=== PATIENT | male | born 1960 | race Caucasian/White ===

== ENCOUNTER 2017-01-03 21:22 | Observation (INO) | payer OTHER ==
[~2017-01-03 21:22] MED LIST: ADVA500A INH; BUSP10TA PO; DULE200A INH; GABA300C5 PO; IPRAAER INH; LISI-515 PO; ROBA500T PO
[2017-01-03] MEDS ORDERED: EPINEPHrine HCL (1:1000) 1 MG/ML VIAL ONE (21:26)
[2017-01-03 21:29] VITALS: BP 89/52; PULSE 95; RESP 24; TEMP 98.8; O2SAT 91
[2017-01-03] MEDS ORDERED: EPINEPHrine HCL (1:1000) 1 MG/ML VIAL IM ONE (21:45)
--- NOTE | 2017-01-03 21:59 | PD ---
HPI Chief Complaint: Allergic/Adverse Reaction Time Seen by Provider: 21:33 Travel History International Travel<30 days: No Contact w/Intl Traveler<30days: No Traveled to known affect area: No History of Present Illness HPI 56yo M with PMH of COPD presents to the ED with c/o sob, upper lip swelling, hives, itching after eating shrimp about 1.5 hour prior to arrival. Pt was given 125mg IV methylprednisolone, nebulizer treatment and benadryl 50mg by [facility]. Pt states that he is feeling better and hip upper lip swelling has improved. Pt initially hypotensive with BP 80s/50s and BP improved to 120s/90s after IVF NS. Had some chest tightness but denies any chest pain right now. Denies any fever, n/v, abdominal pain, weakness or numbness. Pt states he had a reaction to shrimp many years ago. PFSH Past Medical History Anxiety: Yes Heart Rhythm Problems: No Cardiac Catheterization: No High Cholesterol: No Congestive Heart Failure: No COPD: Yes Diabetes: No Diminished Hearing: No Diverticulitis: Yes (2 TO 3 TIMES A YEAR) Hypertension: Yes Past Surgical History Abdominal Surgery: Yes (BOWEL RESECTION COLOSTOMY 2011) Coronary Artery Bypass Graft: No Tonsillectomy: Yes Other Surgery: Yes (CHEST TUBE RIGHT FOR PNEUMO) Social History Alcohol Use: No Tobacco Use: Yes (1 PPD) Substance Use: No Allergies-Medications (Allergen,Severity, Reaction): Coded Allergies: Shrimp (Verified Allergy, Severe, Anaphylaxis, 01/04/17) Reported Meds & Prescriptions Reported Meds & Active Scripts Active Epipen 2-Raghav Inj (Epinephrine) 0.3 Mg/0.3 Ml Pfpen 0.3 Mg IM ONCE PRN Medrol Dosepak (Methylprednisolone) 4 Mg Dspk 4 Mg PO DIRECTED Per Pharmacist direction Combivent Respimat Inh (Ipratropium-Albuterol Inh) 20-100 Halfway/Act Aero 1 Puff INH QID Advair Diskus Inh (Fluticasone-Salmeterol Inh) 500-50 Mcg/Blist Aer 1 Puff INH BID Rinse mouth after use. Robaxin (Methocarbamol) 500 Mg Tab 500 Mg PO TID Gabapentin 300 Mg Cap 300 Mg PO TID Lisinopril 20 Mg Tab 20 Mg PO DAILY Reported Dulera 120 Act Inh (Mometasone-Formoterol 120 Act Inh) 200-5 Mcg/Act Inh 2 Puff INH BID Buspirone (Buspirone HCl) 10 Mg Tab 10 Mg PO BID Review of Systems Except as stated in HPI: all other systems reviewed are Neg Physical Exam Narrative GENERAL: 56yo M in mild distress. SKIN: urticaria bilateral arms and legs. HEAD: Atraumatic. Normocephalic. EYES: Pupils equal and round. No scleral icterus. No injection or drainage. ENT: +Mild edema in upper lip and uvula. Patent airway. NECK: Trachea midline. No JVD. CARDIOVASCULAR: Regular rate and rhythm. No murmur appreciated. RESPIRATORY: No accessory muscle use. Clear to auscultation. Breath sounds equal bilaterally. GASTROINTESTINAL: Abdomen soft, non-tender, nondistended. +Colostomy bag. No rebound tenderness or guarding. MUSCULOSKELETAL: No obvious deformities. No clubbing. No cyanosis. No edema. NEUROLOGICAL: Awake and alert. No obvious cranial nerve deficits. Motor grossly within normal limits. Normal speech. PSYCHIATRIC: Appropriate mood and affect; insight and judgment normal. Data Data Last Documented VS Vital Signs Date Time Temp Pulse Resp B/P Pulse Ox O2 Delivery O2 Flow Rate FiO2 01/04/17 00:00 87 20 115/69 96 Nasal Cannula 3 01/03/17 21:29 98.8 Orders Epinephrine (1:1000) Inj (Adrenalin (1:1 (01/03/17 21:26) Epinephrine (1:1000) Inj (Adrenalin (1:1 (01/03/17 21:45) Complete Blood Count With Diff (01/03/17 21:59) Basic Metabolic Panel (Bmp) (01/03/17 21:59) Troponin I (01/03/17 21:59) Chest, Single Ap (01/03/17 ) Electrocardiogram (01/03/17 ) Sodium Chlor 0.9% 1000 Ml Inj (Ns 1000 M (01/03/17 22:00) Lactic Acid Sepsis Protocol (01/03/17 23:35) Calcium Gluconate Inj (Calcium Gluconate (01/04/17 00:15) Admit Order (Ed Use Only) (01/04/17 00:17) Labs Laboratory Tests Test 01/03/17 01/03/17 23:00 23:40 White Blood Count 24.0 TH/MM3 Red Blood Count 5.01 MIL/MM3 Hemoglobin 15.2 GM/DL Hematocrit 44.5 % Mean Corpuscular Volume 88.8 FL Mean Corpuscular Hemoglobin 30.4 PG Mean Corpuscular Hemoglobin 34.2 % Concent Red Cell Distribution Width 13.1 % Platelet Count 349 TH/MM3 Mean Platelet Volume 8.9 FL Neutrophils (%) (Auto) 88.2 % Lymphocytes (%) (Auto) 8.1 % Monocytes (%) (Auto) 3.3 % Eosinophils (%) (Auto) 0.2 % Basophils (%) (Auto) 0.2 % Neutrophils # (Auto) 21.2 TH/MM3 Lymphocytes # (Auto) 1.9 TH/MM3 Monocytes # (Auto) 0.8 TH/MM3 Eosinophils # (Auto) 0.1 TH/MM3 Basophils # (Auto) 0.1 TH/MM3 CBC Comment DIFF FINAL Differential Comment Sodium Level 139 MEQ/L Potassium Level 4.1 MEQ/L Chloride Level 105 MEQ/L Carbon Dioxide Level 25.4 MEQ/L Anion Gap 9 MEQ/L Blood Urea Nitrogen 15 MG/DL Creatinine 1.18 MG/DL Estimat Glomerular Filtration 63 ML/MIN Rate Random Glucose 166 MG/DL Calcium Level 7.7 MG/DL Troponin I 0.02 NG/ML Lactic Acid Level 1.3 mmol/L MDM Medical Decision Making Medical Screen Exam Complete: Yes Emergency Medical Condition: Yes Differential Diagnosis Anaphylaxis vs. COPD exacerbation Narrative Course 56yo M presents with anaphylaxis s/p eating shrimp at home. Pt was given methylprednisolone and diphenhydramine by [facility] with some improvement of symptoms. Epinephrine 0.3mg IM given in the ED. Pt observed with improvement of symptoms. Labs reviewed, leukocytosis of 24. CXR negative. Pt presented with anaphylaxis and has improved with medications. Hypotensive initially and responded to IVF NS. Pt to be admitted for observation. Diagnosis Primary Impression: Anaphylaxis Qualified Code: T78.2XXA - Anaphylaxis, initial encounter Admitting Information Admitting Physician Requests: Observation Scripts Epinephrine Inj (Epipen 2-Raghav Inj)0.3 Mg/0.3 Ml Pfpen0.3 Mg IM ONCE PRN ( ALLERGIC REACTION) #1 PACK Ref 0 Prov:Boris Prieto 01/04/17 Methylprednisolone Dosepak (Medrol Dosepak)4 Mg Dspk4 Mg PO DIRECTED #1 DSPK Ref 0 Per Pharmacist direction Prov:Boris Prieto 01/04/17 Jayda Bokyin DO Jan 03, 2017 21:59
[2017-01-03 22:00] VITALS: BP 105/63; PULSE 77; RESP 20; O2SAT 92
[2017-01-03] MEDS ORDERED: SODIUM CHLOR 0.9% 1000 ML INJ 1,000 ML IV ONE (22:00)
--- NOTE | 2017-01-03 22:36 | RADRPT ---
EXAM DATE/TIME: 01/03/2017 22:24 [facility] COMPARISON: CHEST SINGLE AP, October 27, 2014, 12:12. INDICATIONS : Sudden onset of difficulty breathing after eating shrimp tonight. MEDICAL HISTORY : Hypertension. Chronic obstructive pulmonary disease. Diverticulitis. SURGICAL HISTORY : Tonsillectomy. Bowel resection. Colostomy. ENCOUNTER: Initial ACUITY: 1 day PAIN SCORE: 0/10 LOCATION: Bilateral chest FINDINGS: A single view of the chest demonstrates the lungs to be symmetrically aerated without evidence of mas s, infiltrate or effusion. The cardiomediastinal contours are unremarkable. Osseous structures are intact. CONCLUSION: No acute disease. Rinku Benz MD on January 03, 2017 at 22:33 Board Certified Radiologist. This report was verified electronically.
[2017-01-03 23:00] VITALS: BP 106/70; PULSE 84; RESP 20; O2SAT 91
[2017-01-03 23:18] LABS: AUTOMATED NEUTROPHIL # 21.2 TH/MM3 (1.8-7.7); BASOPHIL # 0.1 TH/MM3 (0-0.2); BASOPHIL % 0.2 % (0.0-2.0); EOSINOPHIL # 0.1 TH/MM3 (0-0.4); EOSINOPHIL % 0.2 % (0.0-4.0); HEMATOCRIT 44.5 % (39.0-51.0); HEMO FLAGS DIFF FINAL; LYMPH % 8.1 % (9.0-44.0); LYMPHOCYTE # 1.9 TH/MM3 (1.0-4.8); MEAN CELL VOLUME 88.8 FL (80.0-100.0); MEAN CORPUSCULAR HEMOGLOBIN 30.4 PG (27.0-34.0); MEAN CORPUSCULAR HGB CONC 34.2 % (32.0-36.0); MONO % 3.3 % (0.0-8.0); NEUT % 88.2 % (16.0-70.0); PLATELET COUNT 349 TH/MM3 (150-450); RED BLOOD COUNT 5.01 MIL/MM3 (4.50-5.90); RED CELL DISTRIBUTION WIDTH 13.1 % (11.6-17.2)
[2017-01-03 23:48] LABS: BICARBONATE 25.4 MEQ/L (21.0-32.0); POTASSIUM 4.1 MEQ/L (3.5-5.1)
[2017-01-04] VITALS: BP 115/69; PULSE 87; RESP 20; O2SAT 96
[2017-01-04] MEDS ORDERED: CALCIUM GLUCONATE INJ 1 GM in DEXTROSE 5% IN WATER 100ML INJ 100 ML IV ONE ×2 (00:15)
[2017-01-04] MEDS ORDERED: ONDANSETRON HCL 4 MG/2 ML VIAL IVP PRN (00:30)
[2017-01-04] MEDS ORDERED: SODIUM CHLORIDE 0.9% FLUSH 5 ML FLUSH FLUSH PRN (00:30)
[2017-01-04] MEDS ORDERED: BISACODYL 10 MG SUPP PR PRN (00:30)
[2017-01-04] MEDS ORDERED: RESP: ALBUTEROL 2.5 MG/IPRATROPIUM 0.5 MG NEB (PRN) NEB (00:30)
[2017-01-04] MEDS ORDERED: ACETAMINOPHEN/HYDROcodone 325 MG/10 MG TAB PO PRN (00:30)
[2017-01-04] MEDS ORDERED: ACETAMINOPHEN 325 MG TAB PO PRN (00:30)
[2017-01-04] MEDS ORDERED: ACETAMINOPHEN/HYDROcodone 325 MG/5 MG TAB PO PRN (00:30)
[2017-01-04] MEDS: SODIUM CHLOR 0.9% 1000 ML INJ 1,000 ML IV SCH ×2 (00:53→10:17)
--- NOTE | 2017-01-04 01:56 | HHI.HP ---
[facility] Maris Montes MD Admission Diagnosis Anaphylaxis Diagnoses: (1) Allergic reaction Diagnosis: Principal (2) Leukocytosis Diagnosis: Principal (3) COPD (chronic obstructive pulmonary disease) Diagnosis: Principal (4) Tobacco abuse Diagnosis: Principal Travel History International Travel<30 Days: No Contact w/Intl Traveler <30 Da: No Traveled to Known Affected Are: No History of Present Illness Is a 56-year-old male with a PMH of Anxiety, Tobacco Abuse and COPD who is brought to the ER by EMS secondary to apparent anaphylactic reaction to shrimp. Per pt developed generalized itching, hives and lip swelling approx 1hr after eating Shrimp. States he had much milder reaction approx 8yrs after peeling Shrimp, but hasn't handled or eaten Shrimp again until now. Upon EMS arrival, BP 80's systolic. S/p IVF, Solu-Medrol, Benadryl and DuoNeb w/ significant improvement by the time of arrival to ER, however still w/ persistent hives and some mild uvular edema. No airway compromise. S/p Benadryl, Epinephrine and IVF in ER. BP currently 115/69, HR 87. WBC 24, neutrophil 88.2. Chemistry unremarkable except for GFR 63. Calcium 7.7. Lactic Acid 1.3. CXR with no acute findings. Review of Systems Except as stated in HPI: all other systems reviewed are Neg ROS: 14 point review of systems otherwise negative. Past Family Social History Past Medical History PMH: Anxiety, Tobacco Abuse and COPD Past Surgical History PAST SURGICAL HISTORY: Bowel Resection, Tonsillectomy, Chest Tube for Pneumothorax Allergies: Coded Allergies: No Known Allergies (Verified , 12/26/16) Family History PAST FAMILY HISTORY: Reviewed. No h/o DM or CAD Social History PAST SOCIAL HISTORY: Negative for alcohol or drugs. Smokes 1ppd. Physical Exam Vital Signs Vital Signs Date Time Temp Pulse Resp B/P Pulse Ox O2 Delivery O2 Flow Rate FiO2 01/04/17 00:00 87 20 115/69 96 Nasal Cannula 3 01/03/17 23:00 84 20 106/70 91 Nasal Cannula 3 01/03/17 22:00 77 20 105/63 92 Nasal Cannula 3 01/03/17 21:31 Nasal Cannula 2 01/03/17 21:29 98.8 95 24 89/52 91 Physical Exam PE: GENERAL: Pleasant middle-aged white male in no acute distress. Speaking clearly , no airway compromise. HEENT: PERRLA, EOMI. No scleral icterus or conjunctival pallor. No lid lag or facial droop. CARDIOVASCULAR: Regular rate and rhythm. No obvious murmurs to auscultation. No chest tenderness to palpation. RESPIRATORY: No obvious rhonchi or wheezing. Clear to auscultation. Breath sounds equal bilaterally. GASTROINTESTINAL: Abdomen soft, non-tender, nondistended. BS normal. Colostomy in place, no signs of infection. MUSCULOSKELETAL: Extremities without clubbing, cyanosis, or edema. No obvious deformities. Hives bilateral upper extremities. NEUROLOGICAL: Awake, alert and oriented x4. No focal neurologic deficits. Moving both upper and lower extremities spontaneously. Laboratory Laboratory Tests Test 01/03/17 01/03/17 23:00 23:40 White Blood Count 24.0 Red Blood Count 5.01 Hemoglobin 15.2 Hematocrit 44.5 Mean Corpuscular Volume 88.8 Mean Corpuscular Hemoglobin 30.4 Mean Corpuscular Hemoglobin 34.2 Concent Red Cell Distribution Width 13.1 Platelet Count 349 Mean Platelet Volume 8.9 Neutrophils (%) (Auto) 88.2 Lymphocytes (%) (Auto) 8.1 Monocytes (%) (Auto) 3.3 Eosinophils (%) (Auto) 0.2 Basophils (%) (Auto) 0.2 Neutrophils # (Auto) 21.2 Lymphocytes # (Auto) 1.9 Monocytes # (Auto) 0.8 Eosinophils # (Auto) 0.1 Basophils # (Auto) 0.1 CBC Comment DIFF FINAL Differential Comment Sodium Level 139 Potassium Level 4.1 Chloride Level 105 Carbon Dioxide Level 25.4 Anion Gap 9 Blood Urea Nitrogen 15 Creatinine 1.18 Estimat Glomerular Filtration 63 Rate Random Glucose 166 Calcium Level 7.7 Troponin I 0.02 Lactic Acid Level 1.3 Result Diagram: 01/03/17 2300 01/03/172299 Assessment and Plan Problem List: (1) Allergic reaction ICD Code: T78.40XA Status: Acute (2) Leukocytosis ICD Code: D72.829 Status: Acute (3) COPD (chronic obstructive pulmonary disease) ICD Code: J44.9 Status: Acute (4) Tobacco abuse ICD Code: Z72.0 Status: Acute Assessment and Plan A/P: 1. Allergic Rxn: s/p severe allergy approx 1hr after eating Shrimp, +lip swelling, hives, itching, BP 80's systolic. S/p Solu-Medrol and Benadryl by EMS , BP responsive to IVF, received Solu-Medrol and Epinephrine in ER. Significant improvement w/ decreased edema/itching, however persistent mild symptoms. No airway compromise. Will admit for Observation, telemetry, continue IV Solu-Medrol, Benadryl, Protonix, DuoNeb prn. 2. Leukocytosis: WBC 24, possibly stress response however quite rapid. No obvious infection. CXR w/ no acute findings. Check U/a, repeat labs in am. 3. COPD: Chronic Respiratory Failure. Stable. DuoNeb prn, I 4. Tobacco Abuse: Counselled. Ativan prn if needed. 5. DVT Prophylaxis: SCD/Teds. 6. Social work for d/c planning as needed. 7. Case discussed w/ ER physician at length. Kellie Issa MD Jan 04, 2017 01:56
[2017-01-04] MEDS: diphenhydrAMINE HCL 50 MG/ML VIAL IV PUSH SCH ×4 (03:15→12:49)
[2017-01-04] MEDS: PANTOPRAZOLE SODIUM 40 MG VIAL IV PUSH SCH ×2 (03:16→12:50)
[2017-01-04 04:00] VITALS: BP 116/68; PULSE 68; RESP 20; TEMP 98.7; O2SAT 95
[2017-01-04 04:33] LABS: AUTOMATED NEUTROPHIL # 13.9 TH/MM3 (1.8-7.7); BASOPHIL % 0.1 % (0.0-2.0); HEMATOCRIT 39.2 % (39.0-51.0); HEMO FLAGS DIFF FINAL; LYMPH % 3.9 % (9.0-44.0); LYMPHOCYTE # 0.6 TH/MM3 (1.0-4.8); MEAN CELL VOLUME 88.7 FL (80.0-100.0); MEAN CORPUSCULAR HEMOGLOBIN 30.5 PG (27.0-34.0); MEAN CORPUSCULAR HGB CONC 34.3 % (32.0-36.0); MONO % 1.2 % (0.0-8.0); NEUT % 94.8 % (16.0-70.0); PLATELET COUNT 298 TH/MM3 (150-450); RED BLOOD COUNT 4.42 MIL/MM3 (4.50-5.90); RED CELL DISTRIBUTION WIDTH 13.2 % (11.6-17.2); WHITE BLOOD COUNT 14.6 TH/MM3 (4.0-11.0)
[2017-01-04 05:00] LABS: ALT (GPT) 22 U/L (12-78); ANION GAP 7 MEQ/L (5-15); AST (GOT) 9 U/L (15-37); BICARBONATE 24.6 MEQ/L (21.0-32.0); BLOOD UREA NITROGEN 15 MG/DL (7-18); CHLORIDE 106 MEQ/L (98-107); GLOMERULAR FILTRATION RATE 69 ML/MIN (>89); POTASSIUM 4.4 MEQ/L (3.5-5.1); SODIUM (NA) 138 MEQ/L (136-145)
[2017-01-04 05:02] LABS: ALKALINE PHOSPHATASE 61 U/L (45-117); TOTAL BILIRUBIN ADULT 0.3 MG/DL (0.2-1.0)
[2017-01-04] MEDS: methylPREDNISolone SOD SUCC 40 MG/1 ML VIAL IV PUSH SCH ×2 (06:51→12:49)
--- NOTE | 2017-01-04 08:38 | EKG ---
Date Performed: 01/03/2017 Time Performed: 22:25:17 PTAGE: 56 years EKG: Sinus rhythm NORMAL ECG NO PREVIOUS TRACING DOCTOR: Alex Neely Interpretating Date/Time 01/04/2017 08:35:19
[2017-01-04] MEDS ORDERED: SODIUM CHLORIDE 0.9% FLUSH 5 ML FLUSH FLUSH SCH (09:00)
[2017-01-04] MEDS ORDERED: BUDESONIDE-FORMOTEROL 160/4.5 MCG INHALER INH SCH (09:00)
[2017-01-04] MEDS ORDERED: MEDR4PAK PO (10:58)
[2017-01-04] MEDS ORDERED: EPIP0.3I IM (10:58)
--- NOTE | 2017-01-04 11:01 | HHI.PR ---
Subjective Remarks Follow up for anaphylaxis. Feeling much better. The patient reports breathing has improved. Tolerating diet with no difficulties. 1st episode like this with mouth swelling, SOB, and rash. Mild rash from shrimp as a child. Currently following up with the community clinic and patient assistance. Objective Vitals Vital Signs Date Time Temp Pulse Resp B/P Pulse Ox O2 Delivery O2 Flow Rate FiO2 01/04/17 04:00 98.7 68 20 116/68 95 Nasal Cannula 2 01/04/17 00:00 87 20 115/69 96 Nasal Cannula 3 01/03/17 23:00 84 20 106/70 91 Nasal Cannula 3 01/03/17 22:00 77 20 105/63 92 Nasal Cannula 3 01/03/17 21:31 Nasal Cannula 2 01/03/17 21:29 98.8 95 24 89/52 91 Result Diagram: 01/04/17 0405 01/04/17 0405 Imaging Last Impressions Chest X-Ray 01/03/17 0000 Signed Impressions: Service Date/Time: Tuesday, January 03, 2017 22:24 - CONCLUSION: No acute disease. Rinku Benz MD Objective Remarks GENERAL: Well-developed well-nourished. In no acute distress. SKIN: Warm and dry. No lesions noted. HEENT: Normocephalic. Pupils equal and round. Mucous membranes pink and moist. No lip swelling. Airway patent. CARDIOVASCULAR: Regular rate and rhythm. No murmur appreciated. RESPIRATORY: No accessory muscle use. Clear to auscultation. Breath sounds equal bilaterally. GASTROINTESTINAL: Abdomen soft, non-tender, nondistended. Bowel sounds x4. Colostomy in place in LLQ. MUSCULOSKELETAL: No obvious deformities. No clubbing or cyanosis. No edema. NEUROLOGICAL: Awake and alert. No focal neurological deficits. Moves upper and lower extremities spontaneously. Normal speech. PSYCHIATRIC: Appropriate mood and affect; insight and judgment normal. A/P Problem List: (1) Allergic reaction ICD Code: T78.40XA Status: Resolved (2) Leukocytosis ICD Code: D72.829 Status: Acute (3) COPD (chronic obstructive pulmonary disease) ICD Code: J44.9 Status: Chronic (4) Tobacco abuse ICD Code: Z72.0 Status: Chronic Assessment and Plan 56-year-old male with a PMH of Anxiety, Tobacco Abuse and COPD who presented by EMS secondary to apparent anaphylactic reaction to shrimp Allergic reaction/anaphylaxis: s/p severe allergy approx 1hr after eating Shrimp, +lip swelling, hives, itching. Symptoms have improved overnight with epinephrine, Solu-Medrol, Benadryl. Continue Medrol Dosepak. Prescription for EpiPen, case management consulted. Nebs prn. Leukocytosis: WBC 24->14. Likely stress response from reaction as above and steroid administration. Afebrile. No obvious infection. CXR w/ no acute findings. COPD: Chronic, Stable. DuoNeb prn, MDI Tobacco Abuse: Patient counseling. DVT Prophylaxis: SCD/Teds. Written by Boris Prieto, acting as scribe for Dr. Matias on 01/04/17 at 10:59. The documentation accurately reflects the work performed [id number] by ks on at 10:59. Discharge Planning Discharge patient to home Condition on discharge: Improved Diet as tolerated Regular activity Rx written: Medrol dose pack, Epipen Follow-up with primary care physician Boris Prieto Jan 04, 2017 11:01 am Derrell Matias DO Jan 04, 2017 6:00 pm
[2017-01-05] MEDS ORDERED: INFLUENZA VIRUS VACCINE (QUADRIVALENT) 0.5 ML SYR IM ONE (10:00)
[2017-02-06] MEDS ORDERED: GABA300C5 PO (10:26)
[2017-02-06] MEDS ORDERED: IPRAAER INH (10:27)
[2017-02-07] MEDS ORDERED: ADVA500A INH (11:56)
[2017-02-08] MEDS ORDERED: ADVA500A INH (13:16)
[2017-02-14] MEDS ORDERED: GEMF600T PO (10:08)
[2017-04-06] MEDS ORDERED: LISI-515 PO (15:23)
== END 2017-01-04 14:00 | disposition home or self-care (01) ==
LOC: NEPC 21:22 → NEDA 01-04 00:19 → NEDH 01-04 06:33
PROVIDERS: ADMIT Hospitalist; ATTEND Hospitalist
DX: T78.09XA Anaphylactic reaction due to other food products, initial encounter (principal); D72.829 Elevated white blood cell count, unspecified; J96.10 Chronic respiratory failure, unspecified whether with hypoxia or hypercapnia; I10 Essential (primary) hypertension; J44.9 Chronic obstructive pulmonary disease, unspecified; Z72.0 Tobacco use
CPT/HCPCS: 71010; 80048; 80053; 83605; 84484; 85025; 93005; 96360; 96372; 99285; C9113; G0378; J0171; J0610; J1200; J2920; J7030

== ENCOUNTER → 2017-02-13 | Outpatient (CLI) | payer OTHER ==
[~2017-02-13] MED LIST changes: +EPIP0.3I IM; +GEMF600T PO; +MEDR4PAK PO
[2017-02-13 10:14] LABS: BASOPHIL % 0.1 % (0.0-2.0); EOSINOPHIL # 0.2 TH/MM3 (0-0.4); EOSINOPHIL % 1.6 % (0.0-4.0); HEMATOCRIT 42.8 % (39.0-51.0); HEMO FLAGS DIFF FINAL; LYMPH % 23.5 % (9.0-44.0); LYMPHOCYTE # 2.5 TH/MM3 (1.0-4.8); MEAN CELL VOLUME 89.5 FL (80.0-100.0); MEAN CORPUSCULAR HEMOGLOBIN 30.2 PG (27.0-34.0); MEAN CORPUSCULAR HGB CONC 33.7 % (32.0-36.0); MONO % 9.6 % (0.0-8.0); NEUT % 65.2 % (16.0-70.0); PLATELET COUNT 311 TH/MM3 (150-450); RED BLOOD COUNT 4.78 MIL/MM3 (4.50-5.90); RED CELL DISTRIBUTION WIDTH 13.3 % (11.6-17.2); WHITE BLOOD COUNT 10.7 TH/MM3 (4.0-11.0)
[2017-02-13 10:45] LABS: ALKALINE PHOSPHATASE 83 U/L (45-117); ALT (GPT) 30 U/L (12-78); ANION GAP 7 MEQ/L (5-15); AST (GOT) 13 U/L (15-37); BICARBONATE 32.5 MEQ/L (21.0-32.0); BLOOD UREA NITROGEN 8 MG/DL (7-18); CHLORIDE 101 MEQ/L (98-107); GLOMERULAR FILTRATION RATE 74 ML/MIN (>89); GLUCOSE,FASTING 103 MG/DL (74-99); HDL CHOLESTEROL 34.1 MG/DL (40.0-60.0); LDL CHOLESTEROL 126 MG/DL (0-99); POTASSIUM 4.6 MEQ/L (3.5-5.1); SODIUM (NA) 140 MEQ/L (136-145); TOTAL BILIRUBIN ADULT 0.2 MG/DL (0.2-1.0)
== END ==
LOC: CLAB 09:31
PROVIDERS: ATTEND Family Medicine
DX: F41.9 Anxiety disorder, unspecified (principal); J44.9 Chronic obstructive pulmonary disease, unspecified; Z93.3 Colostomy status; Z72.0 Tobacco use
CPT/HCPCS: 36415; 80053; 80061; 84443; 85025